=== PATIENT | female | born 1970 | race Caucasian/White ===

== ENCOUNTER 2020-04-15 13:03 | Day surgery (SDC) | payer OTHER ==
[~2020-04-15] VITALS: Ht 162.6 cm; Wt 75.0 kg
[~2020-04-15 13:03] MED LIST: MAGNESIUM100 MG PO; MULTIPLE VITAM1 EAC2 PO
--- NOTE | 2020-04-15 14:55 | NUR ---
04/15/20 1455 Jo Ann Warner 1450- PT ARRIVES TO PACU ALERT AND TALKING. PT REPORTS NO PAIN OR NAUSEA. 1452- PT PASSING FLATUS.
--- NOTE | 2020-04-18 15:35 | OR ---
[facility] [address] [place], [place] [address] Signed DATE OF OPERATION: 04/15/2020 SURGEON: Perta Deleon MD PREOPERATIVE DIAGNOSIS: Colon screening. POSTOPERATIVE DIAGNOSIS: Small polyp at 10 cm (excised). PROCEDURE: Total colonoscopy to cecum with intubation of ileum and cold morcellation polypectomy x1. ANESTHESIA: Intravenous sedation, fentanyl 100 mcg and Versed 8 mg. INDICATIONS: This 50-year-old white woman is a patient of Dr. Sharon Guajardo and is symptom free having no bleeding, diarrhea, or constipation. She is here for screening colonoscopy based on her age. She understands the risks of bleeding, infection, and perforation related to colonoscopy and wished to proceed. FINDINGS: Prep was excellent. Complete colonoscopy was undertaken of the cecum and intubation of the ileum was accomplished as well. The colon was entirely normal except for a very small polyp, which was adenomatous in appearance at 10 cm. It was excised completely with cold morcellation technique. DESCRIPTION OF PROCEDURE: The patient was brought to the endoscopy suite and placed in lateral decubitus position, given intravenous sedation to the point of slurred speech and nystagmus. Digital rectal examination was normal. An Olympus video colonoscope was passed into the rectum and manipulated throughout the colon ultimately intubating the cecum itself. The ileocecal valve and appendiceal orifice were well identified. The scope was manipulated into the ileum, which was normal. The scope was withdrawn. Careful withdrawal of scope showed no sign of abnormality throughout until about 10 cm from the anal verge, where an adenomatous appearing polyp was noted, this was rather small. It was excised with cold morcellation technique. Retroflexed view of the rectum was otherwise normal. Scope was removed. Electronically Signed By: PETRA DELEON MD 04/18/20 1535 PATIENT NAME: AMIRA JACOB OPERATIVE REPORT DATE OF : 70 REPORT #: [id number] PHYSICIAN: PETRA DELEON MD PCP: SHARON GUAJARDO MD REPORT IS CONFIDENTIAL AND NOT TO BE RELEASED WITHOUT AUTHORIZATION [facility] [address] [place], [place] [address] Signed The patient was taken to the recovery room in good condition. CONCLUDING DIAGNOSIS: Small polyp of rectum at 10 cm, completely excised. PLAN: Recommend repeat colonoscopy in 5 years based on finding of polyps, sooner if clinically indicated. She will return to the ongoing care of Dr. Guajardo. MD MEHRDAD Carrillo/MODL /[id number] cc: Sharon Guajardo MD Copies: SHARON GUAJARDO MD ~ Electronically Signed By: PETRA DELEON MD 04/18/20 1535 PATIENT NAME: AMIRA JACOB OPERATIVE REPORT DATE OF : 70 REPORT #: [id number] PHYSICIAN: PETRA DELEON MD PCP: SHARON GUAJARDO MD REPORT IS CONFIDENTIAL AND NOT TO BE RELEASED WITHOUT AUTHORIZATION
--- NOTE | 2020-04-19 14:24 | PATH ---
[facility] [address] [facility] [place] [address] Signed SPECIMEN(S): A COLON POLYP AT 10 CM SPECIMEN SOURCE: A. COLON POLYP AT 10 CM CLINICAL HISTORY: Screening. Post-op Dx: Polyp x 1. Colonoscopy. MICROSCOPIC DESCRIPTION: Histologic sections of all submitted blocks are examined by light microscopy. These findings, together with the gross examination, support the pathologic diagnosis. FINAL PATHOLOGIC DIAGNOSIS: Colon polyp at 10 cm, biopsy: - Tubular adenoma (two fragments). - Hyperplastic polyp (one fragment). JVR:cml:C2NR GROSS DESCRIPTION: The specimen, labeled "Lidia Jacob, #1," and designated on the requisition "colon polyp at 10 cm," is received in formalin and consists of three mayes soft tissue fragments that measure 0.2-0.3 cm in greatest dimension. The specimen is entirely submitted in cassette (A1). FB (under the direct supervision of a pathologist) The Gross Description was prepared using a voice recognition system. The report was reviewed for accuracy; however, sound-alike word errors, addition and/or deletions may occur. If there is any question about this report, please contact Client Services. PERFORMING LABORATORY: The technical component was performed by [facility], [address] [place] [id number] ([employer] Wel[employer] Machine Operator: Marta Arguello MD; CLIA# [id number]). [facility], [address] [place] [id number]. Diagnostician: Gavino Peter MD Pathologist Electronically Signed 04/19/2020 PATIENT NAME: LIDIA JACOB PATHOLOGY DATE OF : 70 REPORT #: [id number] PHYSICIAN: LAURIE PATHOLOGY PCP: SHARON RODRIGUEZ MD REPORT IS CONFIDENTIAL AND NOT TO BE RELEASED WITHOUT AUTHORIZATION [address] [address] Signed Copies: ~ PATIENT NAME: LIDIA JACOB PATHOLOGY DATE OF : 70 REPORT #: [id number] PHYSICIAN: [facility] PCP: SHARON RODRIGUEZ MD REPORT IS CONFIDENTIAL AND NOT TO BE RELEASED WITHOUT AUTHORIZATION
== END 2020-04-15 15:20 | disposition home or self-care (01) ==
LOC: OPS 13:03 → DS 13:05 → OPS 14:00 → DS 15:00 → OPS 15:20
PROVIDERS: ATTEND Surgery
PROC: 0DBP8ZZ Excision of Rectum, Via Natural or Artificial Opening Endoscopic (ICD-10-PCS; principal; 2020-04-15 14:00)
DX: D12.8 Benign neoplasm of rectum (principal); Z90.711 Acquired absence of uterus with remaining cervical stump; Z88.1 Allergy status to other antibiotic agents; Z80.3 Family history of malignant neoplasm of breast
CPT/HCPCS: 99153; G0500; J2250; J3010; J7121

== ENCOUNTER 2023-09-11 08:47 | Day surgery (SDC) | payer OTHER ==
[2023-09-04 16:25] VITALS: BP 125/88
[~2023-09-11] VITALS: Ht 162.6 cm; Wt 86.4 kg
[~2023-09-11 08:47] MED LIST changes: +IBLOOD GLUCOSE TEST STRIP 1 EA TEST VI PRN; +LACTATED RINGER'S 1,000 ML IV SCH; +LEXAPRO10 MG PO; +LIDOCAINE HCL 1% 5 ML SDV INJ ONE
[2023-09-11 09:06] VITALS: BP 139/79
[2023-09-11] MEDS ORDERED: OXYMETAZOLINE HCL 30 ML BTL NAS SCH (10:00)
[2023-09-11] MEDS ORDERED: fentaNYL citrate 100 MCG/2 ML VIAL ONE (11:01)
[2023-09-11] MEDS ORDERED: KETOROLAC TROMETHAMINE 30 MG/ML VIAL ONE (11:01)
[2023-09-11] MEDS ORDERED: LIDOCAINE HCL 2% 5 ML SDV ONE (11:01)
[2023-09-11] MEDS ORDERED: ACETAMINOPHEN 1,000 MG/100 ML VIAL ONE (11:01)
[2023-09-11] MEDS ORDERED: DEXAMETHASONE SOD PHOS 4 MG/ML VIAL ONE (11:01)
[2023-09-11] MEDS ORDERED: propofoL 200 MG/20 ML VIAL ONE (11:01)
[2023-09-11] MEDS ORDERED: ondansetron HCL 4 MG/2 ML VIAL ONE (11:01)
--- NOTE | 2023-09-11 12:16 | NUR ---
09/11/23 1216 Maribell Galarza 1210-PT TO PACU IN SF POSITION. OPENS EYES TO VERBAL STIMULI. BREATHING EASY AND UNLABORED. SPO2 >95% ON ROOM AIR. DENIES PAIN AND OR NAUSEA. 1215-PT AWAKE TALKING WITH RN. DENIES PAIN AND NAUSEA. BREATHING EASY AND UNLABORED. SPO2 >90% ON ROOM AIR. PT USING YANKAUR INTERMITTANTLY FOR SPITTING/EXPECTORATING SCANT BLOOD.
--- NOTE | 2023-09-11 12:30 | NUR ---
PT ARRIVES TO UNIT VIA STRETCHER FROM PACU. PT IS ALERT & ORIENTED AND REPORTS NO PAIN OR NAUSEA AT THIS TIME. PT TOLERATING SMALL SIPS OF ICE WATER WITHOUT DIFFICULTY. SCANT AMOUNT OF RED DRAINAGE ON SIDE OF NOSE AT THIS TIME, NO SIGNS OF ACTIVE BLEEDING. REPORT RECEIVED FROM BRANDI MEJIA. PT RESTING W/EYES CLOSED, RESPIRATIONS EVEN AND UNLABORED, NO SIGNS OF DISTRESS. CALL LIGHT WITHIN REACH, PT STATES NO FURTHER NEEDS AT THIS TIME. NO FAMILY MEMBERS PRESENT AT BEDSIDE. ARIAN MEJIA TO CALL TO UPDATE.
[2023-09-11 12:36] VITALS: BP 140/90
--- NOTE | 2023-09-11 12:59 | OR ---
[facility] [address] [place], [place] [address] Signed DATE OF OPERATION: 09/11/2023 SURGEON: Valentin Soto MD PREOPERATIVE DIAGNOSIS: Nasal septal perforation, unknown etiology. POSTOPERATIVE DIAGNOSIS: Nasal septal perforation, unknown etiology. PROCEDURE: Biopsy of nasal lesion, placement of a nasal septal button. ANESTHESIA: General LMA; ELECTRICAL CONTINUITY TESTER, Shaji. PREOPERATIVE HISTORY: Ms. Ruvalcaba is a 53-year-old lady who found a septal perforation several months ago, not aware of any risk factors. This perforation has been uncomfortable crusting, bleeding, lots of whistling noise. She was taken to the operating room for the above-mentioned procedures. OPERATIVE PROCEDURE AND FINDINGS: After informed consent, the patient was taken to the operating room, placed in supine position where general LMA anesthesia was induced. The patient and procedure were verified. The patient was repositioned. The patient received preoperative intranasal oxymetazoline. Headlight speculum exam of the nasal cavity showed a septal perforation anteriorly with crusted edges measured about 15 mm in greatest diameter. Using a Steven several biopsies were taken from the edge of the perforation and sent to pathology in formalin. There was fairly prominent bleeding which was stopped afterwards. Septal button was then trimmed to appropriate size, placed with good coverage of the perforation on both sides. The patient was then awakened, extubated, transported to recovery room in good condition. No complications. BLOOD LOSS: Minimal. SPECIMEN: To Pathology. Electronically Signed By: VALENTIN SOTO MD 09/11/23 1259 PATIENT NAME: AMIRA RUVALCABA OPERATIVE REPORT DATE OF : 70 REPORT #: [id number] PHYSICIAN: VALENTIN SOTO MD PCP: BERNICE HARRELL PAC REPORT IS CONFIDENTIAL AND NOT TO BE RELEASED WITHOUT AUTHORIZATION [address] [place], [place] [address] Signed DRAINS: None. PROSTHESIS: Septal button. Valentin Soto MD GC/OLAFL /[id number] Copies: ~ Electronically Signed By: VALENTIN SOTO MD 09/11/23 1259 PATIENT NAME: AMIRA RUVALCABA OPERATIVE REPORT DATE OF : 70 REPORT #: [id number] PHYSICIAN: VALENTIN SOTO MD PCP: BERNICE HARRELL PAC REPORT IS CONFIDENTIAL AND NOT TO BE RELEASED WITHOUT AUTHORIZATION
[2023-09-11 13:40] VITALS: BP 140/75
--- NOTE | 2023-09-11 15:56 | NUR ---
1340: VS CHECKED AND IV DC'D BY KRIS JUAREZ. IV DC'D WNL. TIP INTACT. DRESSING APPLIED. DENIES PAIN. 1350: DISCHARGE INSTRUCTIONS GIVEN TO PATIENT AND . STAND BY ASSIST WHILE PATIENT GOT OOB. GAIT STEADY. PATIENT GETTING DRESSED. 1400: PATIENT WALKED TO BATHROOM AND BACK TO ROOM INDEPENDENTLY. PATIENT DISCHARGED TO HOME WITH VIA WHEELCHAIR.
--- NOTE | 2023-09-14 11:57 | PATH ---
[facility] [address] [facility] [place], [place] [address] Signed SPECIMEN(S): A SEPTAL NASAL LESION SPECIMEN SOURCE: A. SEPTAL NASAL LESION CLINICAL HISTORY: Nasal septal lesion; perforation FINAL PATHOLOGIC DIAGNOSIS: Nasal septum, biopsy: - Squamous mucosa with ulceration, acute and chronic inflammation, and granulation tissue formation; negative for malignancy BRP MICROSCOPIC EXAMINATION: Histologic sections of all submitted blocks are examined by light microscopy. These findings, together with the gross examination, support the pathologic diagnosis. GROSS DESCRIPTION: The specimen, labeled and designated "Riedmann, septal nasal lesion," is received in formalin and consists of three fragments of mayes to red-brown soft tissue/mucosa (0.4-0.7 cm in greatest dimension). The specimen is submitted entirely in cassette (A1). VB (under the direct supervision of a pathologist) The Gross Description was prepared using a voice recognition system. The report was reviewed for accuracy; however, sound-alike word errors, addition and/or deletions may occur. If there is any question about this report, please contact Client Services. ADDITIONAL NOTES: Immunohistochemical and/or in situ hybridization studies if performed in this case included appropriate positive controls that reacted as expected. This test was developed and its performance characteristics determined by [employer]. It has not been cleared or approved by the U.S. Food and Drug Administration. The FDA has determined that such clearance or approval is not necessary. This test is used for clinical purposes. It should not be regarded as investigational or for research. [facility] is certified under the Clinical Laboratory Improvement Amendments of 1988 (CLIA) as qualified to perform high complexity clinical PATIENT NAME: AMIRA MARVIN PATHOLOGY DATE OF : 70 REPORT #: [id number] PHYSICIAN: LAURIE CARDOZO PCP: BERNICE HARRELL PAC REPORT IS CONFIDENTIAL AND NOT TO BE RELEASED WITHOUT AUTHORIZATION [facility] [address] [place] [address] Signed laboratory testing. PERFORMING LABORATORY: Technical component was performed by [employer] [facility], [address] [place] [address] (CLIA# [id number]). Professional interpretation was performed by [facility], [address] [address] (CLIA# [id number]). Diagnostician: Satya Lambert MD Pathologist Electronically Signed 09/14/2023 Copies: ~ PATIENT NAME: AMIRA MARVIN PATHOLOGY DATE OF : 70 REPORT #: [id number] PHYSICIAN: LAURIE CARDOZO PCP: BERNICE HARRELL PAC REPORT IS CONFIDENTIAL AND NOT TO BE RELEASED WITHOUT AUTHORIZATION
== END 2023-09-11 14:00 | disposition home or self-care (01) ==
LOC: OPS 08:47 → DS 08:47 → OPS 12:00
PROVIDERS: ATTEND Otolaryngology
PROC: 09BM0ZX Excision of Nasal Septum, Open Approach, Diagnostic (ICD-10-PCS; principal; 2023-09-11 12:00)
PROC: 09HK0YZ Insertion of Other Device into Nasal Mucosa and Soft Tissue, Open Approach (ICD-10-PCS; 2023-09-11 12:00)
DX: J34.89 Other specified disorders of nose and nasal sinuses (principal); Z88.8 Allergy status to other drugs, medicaments and biological substances; F17.200 Nicotine dependence, unspecified, uncomplicated
CPT/HCPCS: 00160; J0131; J1100; J1885; J2001; J2405; J2704; J3010; J7121